=== PATIENT | male | born 1970 | race Caucasian/White ===

== ENCOUNTER → 2020-05-25 09:03 | Outpatient (CLI) | payer OTHER, SELFPAY ==
--- NOTE | ~2020-05-25 | MR_ITS ---
EXAMINATION: MR knee LT wo con DATE: 05/25/2020 09:53 INDICATION: Left knee joint effusion. Medial left knee pain. TECHNIQUE: Magnetic resonance imaging (MRI) of the left knee was performed without intravenous contra st. Sequences included axial PD-weighted FS FSE, coronal PD-weighted FSE and PD-weighted FS FSE, sagi ttal PD-weighted FSE, and sagittal T2-weighted FS FSE. COMPARISON: Left knee MRI 11/10/2010, radiographs 01/29/2013 FINDINGS: Medial compartment: There is an undersurface horizontal tear of body of medial meniscus. There is cartilage surface irreg ularity of medial condyle and tibial condyle. There are tiny marginal osteophytes. Lateral compartment: Lateral meniscus is normal. There is deep partial thickness cartilage loss of femoral condyle involvi ng the central articular surface. There is cartilage surface irregularity of tibial condyle. There ar e tiny marginal osteophytes. Patellofemoral compartment: There is full-thickness cartilage loss of patellar median ridge and lateral facet with moderate subch ondral edema-like marrow signal intensity. There is shallow partial-thickness cartilage loss of vera lar medial facet. There is deep partial thickness cartilage loss of central trochlea and shallow part ial-thickness cartilage loss of medial and lateral trochlea. Marginal osteophytes are noted. Ligaments and tendons: Anterior and posterior cruciate ligaments are normal. The medial collateral ligament and lateral sarahy ateral ligament complex are normal. There is mild patellar tendinopathy. Fluid: There is a moderate-sized knee joint effusion. There is mild prepatellar and superficial infrapatella r bursitis. Osseous/other: There is bone marrow edema in proximal tibia, likely stress reaction. Increased signal in proximal ti chad posteriorly likely has a component of intraosseous ganglion. IMPRESSION: 1. Severe chondrosis of patellofemoral compartment, moderate chondrosis of lateral compartment, and m ild chondrosis of medial compartment. 2. Tear of medial meniscus. 3. Moderate-sized knee joint effusion. Reviewed, dictated and finalized at location A. E COUNSELOR IMPRESSION: 1. Severe chondrosis of patellofemoral compartment, moderate chondrosis of late ral compartment, and mild chondrosis of medial compartment. 2. Tear of medial meniscus. 3. Moderate-sized knee joint effusion.
== END ==
PROVIDERS: PCP Internal Medicine; Visit Provider Internal Medicine
DX: M25.462 Effusion, left knee (principal); M17.12 Unilateral primary osteoarthritis, left knee
CPT/HCPCS: 73721

== ENCOUNTER → 2021-06-24 09:44 | Outpatient (CLI) | payer OTHER, SELFPAY ==
--- NOTE | ~2021-06-24 | XR_ITS ---
XR toe 1st LT min 2V DATE: 06/24/2021 10:25 INDICATION: Left great toe pain TECHNIQUE: 3 views COMPARISON: 09/11/2008 left foot FINDINGS: No fracture or dislocation, periosteal reaction or bone destruction. First metatarsophalang eal and interphalangeal joints are preserved. No erosive change or chondrocalcinosis. IMPRESSION: No significant abnormality Reviewed, dictated and finalized at location A. MACY ORDER ENTRY TECHNICIAN IMPRESSION: No significant abnormality
== END ==
PROVIDERS: Visit Provider Internal Medicine
DX: M79.675 Pain in left toe(s) (principal)
CPT/HCPCS: 73660